=== PATIENT | female | born 2000 | race African-American/Black ===

== ENCOUNTER 2018-04-07 11:26 | Emergency (ER) | payer OTHER ==
[2018-04-07] MEDS ORDERED: NYSTATIN 500000 UNIT/5 ML UDCUP PO ONE (12:11)
--- NOTE | 2018-04-07 12:12 | ER Document Report ---
ED Oral Problem - General Chief Complaint: Mouth Problem Stated Complaint: MOUTH PAIN Time Seen by Provider: 04/07/18 11:51 Mode of Arrival: Ambulatory Information source: Patient Notes: 17-year-old female presents to ED for complaint of mouth pain. States she was seen in urgent care yesterday and diagnosed with thrush. States she was given Magic mouthwash which has not helped with her pain. She states she has a very sore throat. She is alert and oriented, pupils equal react to light, speaks with even sentences, respirations regular and unlabored, and walks with a even steady gait. TRAVEL OUTSIDE OF THE [place] IN LAST 30 DAYS: No - HPI Patient complains to provider of: Sore throat Onset: Other - Several days Onset: Gradual Quality of pain: Burning Severity: Moderate Pain Level: 4 Associated symptoms: White patches in mouth, Other - Sore throat and mouth pain Worsened by: Other - Eating Relieved by: Nothing Similar symptoms previously: Yes Recently seen / treated by doctor/dentist: Yes - Related Data Allergies/Adverse Reactions: No Known Allergies Allergy (Verified 04/07/18 11:27) Past Medical History - General Information source: Patient - Social History Smoking Status: Never Smoker Cigarette use (# per day): No Chew tobacco use (# tins/day): No Smoking Education Provided: No Frequency of alcohol use: None Drug Abuse: None Occupation: [employer] Lives with: Family Family History: Reviewed & Not Pertinent Patient has suicidal ideation: No Patient has homicidal ideation: No - Past Medical History Cardiac Medical History: Reports: None Pulmonary Medical History: Reports: None EENT Medical History: Reports: None Neurological Medical History: Reports: None Endocrine Medical History: Reports: None Renal/ Medical History: Reports: None Malignancy Medical History: Reports: None GI Medical History: Reports: None Musculoskeltal Medical History: Reports None Skin Medical History: Reports None Psychiatric Medical History: Reports: None Traumatic Medical History: Reports: None Infectious Medical History: Reports: None Surgical Hx: Negative Past Surgical History: Reports: None - Immunizations Immunizations up to date: Yes Review of Systems - Review of Systems Constitutional: No symptoms reported EENT: Throat pain, Mouth pain, Other - White patches Cardiovascular: No symptoms reported Respiratory: No symptoms reported Gastrointestinal: No symptoms reported Genitourinary: No symptoms reported Female Genitourinary: No symptoms reported Musculoskeletal: No symptoms reported Skin: No symptoms reported Hematologic/Lymphatic: No symptoms reported Neurological/Psychological: No symptoms reported -: Yes All other systems reviewed and negative Physical Exam - Vital signs Vitals: Temp Pulse Resp BP Pulse Ox 99.3 F 89 14 120/84 97 04/07/18 11:30 04/07/18 11:30 04/07/18 11:30 04/07/18 11:30 04/07/18 11:30 Interpretation: Normal - General General appearance: Appears well, Alert - HEENT Head: Normocephalic, Atraumatic Eyes: Normal Pupils: PERRL Ears: Normal External canal: Normal Tympanic membrane: Normal Sinus: Normal Nasal: Swelling, Clear rhinorrhea Mouth/Lips: Normal Mucous membranes: Normal Pharynx: Erythema, Post nasal drainage, Tonsillar hypertrophy, Other - White patches to the uvula tonsils and tongue Neck: Anterior cervical chain - Respiratory Respiratory status: No respiratory distress Chest status: Nontender Breath sounds: Normal Chest palpation: Normal - Cardiovascular Rhythm: Regular Heart sounds: Normal auscultation Murmur: No - Abdominal Inspection: Normal Distension: No distension Bowel sounds: Normal Tenderness: Nontender Organomegaly: No organomegaly - Back Back: Normal, Nontender - Extremities General upper extremity: Normal inspection, Nontender, Normal color, Normal ROM , Normal temperature General lower extremity: Normal inspection, Nontender, Normal color, Normal ROM , Normal temperature, Normal weight bearing. No: Justin's sign - Neurological Neuro grossly intact: Yes Cognition: Normal Orientation: AAOx4 [place] Coma Scale Eye Opening: Spontaneous [place] Coma Scale Verbal: Oriented [place] Coma Scale Motor: Obeys Commands Krzysztof Coma Scale Total: 15 Speech: Normal Motor strength normal: LUE, RUE, LLE, RLE Sensory: Normal - Psychological Associated symptoms: Normal affect, Normal mood - Skin Skin Temperature: Warm Skin Moisture: Dry Skin Color: Normal Course - Re-evaluation Re-evalutation: 04/07/18 12:58 Patient treated with nystatin 500,000 units swish and swallow while in the emergency room. She states she was prescribed Magic mouthwash yesterday which did no good but that the swish and swallow she did today has actually decreased her pain. Patient was discharged home with prescription for nystatin swish and swallow and instructions for salt and soda solution gargles. - Vital Signs Vital signs: Temp Pulse Resp BP Pulse Ox 99.3 F 89 14 120/84 97 04/07/18 11:30 04/07/18 11:30 04/07/18 11:30 04/07/18 11:30 04/07/18 11:30 Discharge - Discharge Clinical Impression: Throat pain, Oral thrush Condition: Stable Disposition: HOME, SELF-CARE Instructions: Dentist, Family Physicians / Practices Additional Instructions: Oral Thrush You have thrush. This is a yeast infection of the mucous membranes in the mouth, caused by an organism called fredis. Typical symptoms are redness, tenderness, and white spots "stuck" on the membranes. Thrush often occurs after treatment with antibiotics, particularly in infants. In adults, the infection is unusual. It usually requires further evaluation for a possible hidden disease such as diabetes or a problem with the immune system. Thrush is treated with antifungal medication. The medicine is rubbed into the cheeks. Several days are required for healing. You should return if you do not improve as expected, or if any new or unusual symptoms develop. You were given a prescription for nystatin which is a antifungal medication for the mouth for your thrush. You need to gargle with this 4 times a day after gargling with salt and soda solution. Please brush your teeth after every meal and at bedtime. You can brush her teeth and then gargle with salt and soda and then use her nystatin if it would help you to keep it straight. When you use the nystatin swish for several minutes and then swallow. Salt and soda solution 1 quart of water 1 tablespoon of salt 1 teaspoon of baking soda Mixed 3 ingredients together and boil for 1 minute Placed in a covered quart jar Use 1/2 ounce of cold solution to gargle 3 times a day FOLLOW-UP CARE: If you have been referred to a physician for follow-up care, call the physician s office for an appointment as you were instructed or within the next two days. If you experience worsening or a significant change in your symptoms, notify the physician immediately or return to the Emergency Department at any time for re-evaluation. Prescriptions: Nystatin [Mycostatin 061022 Unit/1 ml Susp 60 ml Btl] 5 ml PO QID #120 ml Forms: Return to Work Referrals: ROSEY GONZALEZ DO [ASSOCIATE] - Follow up as needed
[2018-04-07 13:25] VITALS: BP 116/67
== END 2018-04-07 13:24 | disposition home or self-care (01) ==
LOC: ER 11:26
DX: B37.0 Candidal stomatitis (principal); J02.9 Acute pharyngitis, unspecified; K08.89 Other specified disorders of teeth and supporting structures; R09.89 Other specified symptoms and signs involving the circulatory and respiratory systems
CPT/HCPCS: 87070; 87077; 87880; 99283